=== PATIENT | female | born 1960 | race Caucasian/White ===

== ENCOUNTER → 2018-05-18 | Outpatient (CLI) | payer OTHER | END | disposition home or self-care (01) | LOC: NUCLEAR 09:25 | DX: C50.912 Malignant neoplasm of unspecified site of left female breast (principal) | CPT/HCPCS: 78815; A9552 ==

== ENCOUNTER 2018-11-25 08:41 | Outpatient (CLI) | payer OTHER | END 2018-11-25 08:47 | disposition home or self-care (01) | LOC: NUCLEAR 08:41 | DX: C50.512 Malignant neoplasm of lower-outer quadrant of left female breast (principal) | CPT/HCPCS: 78815; A9552 ==

== ENCOUNTER 2019-06-13 07:49 | Outpatient (CLI) | payer OTHER | END 2019-06-13 08:09 | disposition home or self-care (01) | LOC: NUCLEAR 07:49 | DX: C50.912 Malignant neoplasm of unspecified site of left female breast (principal); F17.200 Nicotine dependence, unspecified, uncomplicated; F41.8 Other specified anxiety disorders; R31.29 Other microscopic hematuria; Z51.11 Encounter for antineoplastic chemotherapy; C50.412 Malignant neoplasm of upper-outer quadrant of left female breast; Z17.0 Estrogen receptor positive status [ER+]; C80.1 Malignant (primary) neoplasm, unspecified; E66.3 Overweight | CPT/HCPCS: 78815; A9552 ==